=== PATIENT | female | born 1980 | race Caucasian/White ===

== ENCOUNTER 2018-09-24 05:39 | Inpatient (IN) | payer OTHER ==
[2018-09-24] VITALS (18 sets, daily range): BP systolic 93–124; BP diastolic 49–78; PULSE 50–96; TEMP 97.8–98.3
[~2018-09-24] VITALS: Ht 157.5 cm; Wt 75.5 kg
[~2018-09-24 05:39] MED LIST: MOTRIN 600600 MG/TAB PO; PERCOCET 325 MG1 TA2 PO; PRENATAL1 TA1 PO
[2018-09-24] MEDS ORDERED: ZANTAC 7575 MG PO (06:38)
[2018-09-24] MEDS ORDERED: MUCINEX 60600 MG/TA1 PO (06:38)
[2018-09-24] MEDS ORDERED: BENADRYL25 M2 PO (06:39)
[2018-09-24 06:40] LABS: BASO % 0.3 % (0.0-2.0); EOS # 0.1 (0.0-0.7); EOS % 0.5 % (0-4.0); GRAN # 8.4 (1.4-6.5); GRAN % 71.7 % (42.2-75.2); HEMOGLOBIN 12.3 g/dl (12.5-16.0); LYMPH % 17.1 % (20.0-51.0); MEAN CELL VOLUME 93 fl (80.0-100.0); MEAN CORPUSCULAR HEMOGLOBIN 31 pg (27.0-31.0); MEAN CORPUSCULAR HGB CONC 34 g/dl (33.0-37.0); MEAN PLATELET VOLUME 10.9 fl (7.4-10.4); MONO % 8.7 % (1.7-9.3); PLATELET COUNT 268 K/mm3 (130-400); RED BLOOD COUNT 3.93 M/mm3 (4.10-5.30); REDCELL DISTRIBUTION WIDTH-CV 13.2 % (11.5-14.5)
[2018-09-24 06:41] LABS: HEMATOCRIT 36.6 % (37.0-47.0)
[2018-09-25 09:00] VITALS: BP 111/59; PULSE 69; TEMP 98.1
[2018-09-25 16:39] VITALS: BP 115/73; PULSE 71; TEMP 98
[2018-09-25 20:30] VITALS: BP 101/52; PULSE 63; TEMP 98.2
[2018-09-26 06:45] VITALS: BP 103/55; PULSE 69; TEMP 98.5
[2018-09-26] MEDS ORDERED: PERCOCET 325 MG1 TA2 PO (10:46)
[2018-09-26] MEDS ORDERED: IBU600 MG PO (10:46)
[2018-09-26 16:45] VITALS: BP 109/50; PULSE 64; TEMP 98.7
[2018-09-26 21:35] VITALS: BP 117/588; PULSE 69; TEMP 97.5
[2018-09-27 07:50] VITALS: BP 105/54; PULSE 74; TEMP 98.1
== END 2018-09-27 13:40 | disposition home or self-care (01) | DRG 788 ==
LOC: OB 05:39 → LDR 06:21 → OB 09-27 13:40
PROVIDERS: Obstetrics & Gynecology
PROC: 10D00Z1 Extraction of Products of Conception, Low, Open Approach (ICD-10-PCS; principal; 2018-09-24)
DX: O34.211 Maternal care for low transverse scar from previous cesarean delivery (principal); Z3A.39 39 weeks gestation of pregnancy; Z37.0 Single live birth
CPT/HCPCS: J0690; J1885; J2175; J2405; J2590; J3010; J7120

== ENCOUNTER → 2023-11-16 | Outpatient (CLI) | payer OTHER ==
[~2023-11-16] MED LIST changes: +BENADRYL25 M2 PO; +IBU600 MG PO; +MUCINEX 60600 MG/TA1 PO; +ZANTAC 7575 MG PO
== END ==
LOC: MC.RAD 14:17
DX: Z12.31 Encounter for screening mammogram for malignant neoplasm of breast (principal)